=== PATIENT | female | born 1995 | race Caucasian/White ===

== ENCOUNTER 2016-12-23 12:38 | Emergency (ER) | payer MEDICAID, OTHER ==
--- NOTE | 2016-12-23 13:46 | EDPHY ---
H & P Stated Complaint: Passed out at work;hit head Time Seen by Provider: 12/23/16 13:31 HPI/ROS: CHIEF COMPLAINT: Syncope HISTORY OF PRESENT ILLNESS: The patient presents the ED after a syncopal episode at work. The patient reportedly was standing and passed out. She fell and struck the back of her head. She did not have a significant loss of consciousness. The patient states she has no significant headache currently. She has some mild tenderness in her occipital scalp. The patient has no prior history of syncope. The patient did feel mild nausea prior to her syncopal event. The patient takes no regular medications. She denies an abnormal period , rectal bleeding or other acute complaints. REVIEW OF SYSTEMS: A comprehensive 10 point review of systems is otherwise negative aside from elements mentioned in the history of present illness. Source: Patient Exam Limitations: No limitations - Personal History LMP (Females 10-55): 15-21 Days Ago Current Tetanus Diphtheria and Acellular Pertussis (TDAP): Yes - Medical/Surgical History Hx Asthma: No Hx Chronic Respiratory Disease: No Hx Diabetes: No Hx Cardiac Disease: No Hx Renal Disease: No Hx Cirrhosis: No Hx Alcoholism: No Hx HIV/AIDS: No Hx Splenectomy or Spleen Trauma: No Other PMH: Cyst from ovary on left side 2009. - Social History Smoking Status: Never smoked - Physical Exam Exam: General Appearance: Alert, no distress Head: Tenderness to palpation occipital skull, no hematoma, no crepitus Eyes: Pupils equal, round, reactive ENT, Mouth: No hemotympanum, no oral trauma Neck: Nontender, trachea midline Respiratory: No chest wall tender, subcutaneous air, lungs clear bilaterally Cardiovascular: Regular rate and rhythm Abdomen: Abdomen is soft and nontender, pelvis stable Skin: No lacerations, No abrasion Back: No midline T/L/S pain Extremities: Nontender, full range of motion Neurological: A&Ox3, normal motor function, normal sensory exam Constitutional: Initial Vital Signs Temperature (C) 36.7 C 12/23/16 12:41 Heart Rate 85 12/23/16 12:41 Respiratory Rate 18 12/23/16 12:41 Blood Pressure 96/64 L 12/23/16 12:41 O2 Sat (%) 96 12/23/16 12:41 O2 Delivery Mode Room Air Allergies/Adverse Reactions: No Known Allergies Allergy (Verified 12/23/16 12:41) Home Medications: Medication Instructions Recorded Control 12/23/16 Medical Decision Making - Diagnostics EKG Interpretation: EKG: Complete interpretation has been separately recorded in the [employer] archive. Summary impression: Sinus rhythm ED Course/Re-evaluation: The patient presents to the ED after an episode of syncope at work. The patient 's EKG demonstrates no evidence of arrhythmia. The patient's test is negative. While she did strike her head, she has no hematoma and has no complaints of headache. Her neurologic examination is normal. I do not feel that a CT scan of her head is indicated. The patient was placed on a cardiac tech without evidence of arrhythmia while in the emergency department. She had serial examinations by myself over a 2 hour period. At this point time I do feel the patient can be discharged home with customary aftercare instructions. The patient should follow up with her regular physician as needed. She should return to the ED for severe headache, fever, vomiting or other concerns. Differential Diagnosis: Differential diagnosis considered includes arrhythmia, metabolic abnormality, anemia, dehydration, ectopic , closed head injury - Data Points Laboratory Results: Laboratory Results 12/23/16 14:15 12/23/16 14:15 12/23/16 12/23/16 12/23/16 14:15 14:15 14:15 WBC 7.75 10^3/uL 10^3/uL (3.80-9.50) RBC 4.07 10^6/uL L 10^6/uL (4.18-5.33) Hgb 12.7 g/dL g/dL (12.6-16.3) Hct 37.9 % L % (38.0-47.0) MCV 93.1 fL fL (81.5-99.8) MCH 31.2 pg pg (27.9-34.1) MCHC 33.5 g/dL g/dL (32.4-36.7) RDW 12.4 % % (11.5-15.2) Plt Count 200 10^3/uL 10^3/uL (150-400) MPV 10.9 fL fL (8.7-11.7) Neut % (Auto) 76.2 % H % (39.3-74.2) Lymph % (Auto) 17.3 % % (15.0-45.0) Baxter % (Auto) 5.2 % % (4.5-13.0) Eos % (Auto) 0.8 % % (0.6-7.6) Baso % (Auto) 0.4 % % (0.3-1.7) Nucleat RBC Rel Count 0.0 % % (0.0-0.2) Absolute Neuts (auto) 5.91 10^3/uL 10^3/uL (1.70-6.50) Absolute Lymphs (auto) 1.34 10^3/uL 10^3/uL (1.00-3.00) Absolute Monos (auto) 0.40 10^3/uL 10^3/uL (0.30-0.80) Absolute Eos (auto) 0.06 10^3/uL 10^3/uL (0.03-0.40) Absolute Basos (auto) 0.03 10^3/uL 10^3/uL (0.02-0.10) Absolute Nucleated RBC 0.00 10^3/uL 10^3/uL (0-0.01) Immature Gran % 0.1 % % (0.0-1.1) Immature Gran # 0.01 10^3/uL 10^3/uL (0.00-0.10) Sodium 135 mEq/L mEq/L (134-144) Potassium 4.2 mEq/L mEq/L (3.5-5.2) Chloride 105 mEq/L mEq/L (97-110) Carbon Dioxide 19 mEq/l L mEq/l (22-31) Anion Gap 11 mEq/L mEq/L (8-16) BUN 11 mg/dL mg/dL (7-23) Creatinine 0.8 mg/dL mg/dL (0.6-1.0) Estimated GFR > 60 Glucose 103 mg/dL H mg/dL (70-100) Calcium 9.3 mg/dL mg/dL (8.5-10.4) Beta HCG, Qual NEGATIVE Departure - Departure Disposition: Home, Routine, Self-Care Clinical Impression: Syncope, Head injury Condition: Good Instructions: Syncope (ED) Additional Instructions: 1. Drink plenty of fluids as dehydration may have contributed to you passing out today. 2. The EKG and blood testing emergency department today are normal. 3. Please return to the ED for severe headache, difficulty with vision, speech or ambulation. 4. Tylenol and ibuprofen as needed for pain. Referrals: [facility] [Other] - As per Instructions
--- NOTE | 2016-12-23 14:19 | CPEKG ---
Heart Rate: 64 RR Interval: 938 P-R Interval: 160 QRSD Interval: 74 QT Interval: 372 QTC Interval: 384 P Lockwood: 27 QRS Lockwood: 46 T Wave Lockwood: 32 EKG Severity - BORDERLINE ECG - EKG Impression: SINUS RHYTHM Electronically Signed By: Toni Escobar 23-Dec-2016 17:32:16
[2016-12-23 14:23] LABS: % IMMATURE GRANULYOCYTES 0.1 % (0.0-1.1); ABSOLUTE IMMATURE GRANULOCYTES 0.01 10^3/uL (0.00-0.10); ADD DIFF? NO; ADD MORPH? NO; ADD SCAN? NO; ATYPICAL LYMPHOCYTE FLAG 40 (0-99); FRAGMENT RBC FLAG 0 (0-99); HEMATOCRIT 37.9 % (38.0-47.0); HEMOGLOBIN 12.7 g/dL (12.6-16.3); LEFT SHIFT FLG 0 (0-99); LIPEMIA HEMOLYSIS FLAG 80 (0-99); MEAN CELL HEMOGLOBIN 31.2 pg (27.9-34.1); MEAN CELL HEMOGLOBIN CONCENTR. 33.5 g/dL (32.4-36.7); MEAN CELL VOLUME 93.1 fL (81.5-99.8); MEAN PLATELET VOLUME 10.9 fL (8.7-11.7); PLATELET CLUMPS FLAG 0 (0-99); PLATELET COUNT 200 10^3/uL (150-400); RED BLOOD CELL COUNT 4.07 10^6/uL (4.18-5.33); RED CELL DISTRIBUTION WIDTH 12.4 % (11.5-15.2)
[2016-12-23 14:37] LABS: ANION GAP 11 mEq/L (8-16); CALCIUM 9.3 mg/dL (8.5-10.4); CARBON DIOXIDE 19 mEq/l (22-31); CHLORIDE 105 mEq/L (97-110); CREATININE 0.8 mg/dL (0.6-1.0); GLOMERULAR FILTRATION RATE > 60; GLUCOSE 103 mg/dL (70-100); POTASSIUM 4.2 mEq/L (3.5-5.2); SODIUM 135 mEq/L (134-144)
[2016-12-23 15:44] VITALS: BP 102/61; PULSE 71; RESP 15; TEMP 98.8; O2SAT 97
== END 2016-12-23 15:44 | disposition home or self-care (01) ==
DX: S09.90XA Unspecified injury of head, initial encounter (principal); R55 Syncope and collapse; W18.09XA Striking against other object with subsequent fall, initial encounter